=== PATIENT | female | born 1965 | race Hispanic/Latino ===

== ENCOUNTER 2019-02-20 15:10 | Emergency (ER) | payer MEDICARE ==
[2019-02-20] MEDS ORDERED: Dexamethasone 4 mg/ml Vial ONE (15:39)
[2019-02-20] MEDS ORDERED: Acetaminophen 500 MG TAB ONE (15:39)
== END 2019-02-20 16:15 | disposition home or self-care (01) ==
LOC: ERS 15:10
DX: M54.42 Lumbago with sciatica, left side (principal); E11.9 Type 2 diabetes mellitus without complications; I10 Essential (primary) hypertension; F32.9 Major depressive disorder, single episode, unspecified; Z79.899 Other long term (current) drug therapy; Z79.4 Long term (current) use of insulin
CPT/HCPCS: 99283; J1100